=== PATIENT | female | born 1970 | race Hispanic/Latino ===

== ENCOUNTER 2016-10-09 21:19 | Emergency (ER) | payer BC, MEDICARE | END 2016-10-09 21:52 | disposition home or self-care (01) | LOC: NAV ERS 21:19 | DX: R05 Cough (principal); E11.9 Type 2 diabetes mellitus without complications; E66.9 Obesity, unspecified; J45.909 Unspecified asthma, uncomplicated; Z79.899 Other long term (current) drug therapy; M17.0 Bilateral primary osteoarthritis of knee | CPT/HCPCS: 99283 ==

== ENCOUNTER 2016-10-22 20:34 | Emergency (ER) | payer BC, MEDICARE ==
[2016-10-22 21:34] LABS: Blood, Urine Large (Negative); Clarity Clear (Clear); Glucose, Urine (Dipstick) Negative (Negative); Leukocyte Negative (Negative); Nitrite Negative (Negative); Protein, Urine (Dipstick) 30 mg/dL (Neg-Trace); pH, Urine 5.5 (5.0-9.0)
[2016-10-22 21:38] LABS: Bilirubin Negative (Negative); Icto Negative (Negative); Specific Gravity, Urine Greater/Equal 1.030 (1.005-1.030)
[2016-10-22 21:44] LABS: Bacteria/HPF Rare-Few HPF (None Seen); WBC/HPF 0-3 HPF (0-3)
[2016-10-22 22:06] LABS: #Basophils 0.1 thou/uL (0.0-0.2); #Eosinphils 0.1 thou/uL (0.0-0.7); #Lymphocytes 1.8 thou/uL (1.20-3.40); #Monocytes 0.6 thou/uL (0.11-0.59); #Neutrophils 3.9 thou/uL (1.40-6.50); %Eosinophils 1.3 % (0.0-10.0); %Lymphocytes 27.7 % (21.0-51.0); %Monocytes 9.8 % (0.0-10.0); %Neutrophils 60.2 % (42.0-75.0); Hemoglobin 12.7 g/dL (12.0-16.0); Mean Corpuscular HGB CONC 31.4 g/dL (32.0-36.0); Mean Corpuscular Hemoglobin 26.1 pg (27.0-31.0); Mean Corpuscular Volume 83.1 fl (81.0-99.0); Platelet Count 174 thou/uL (130-400); RBC Distribution Width 14.8 % (11.5-14.5); Red Blood Cell (RBC) Count 4.87 mill/uL (4.20-5.40); White Blood Cell (WBC) Count 6.5 thou/uL (4.8-10.8)
[2016-10-22 22:29] LABS: ALT (SGPT) 19 U/L (8-55); AST (SGOT) 19 U/L (5-34); Albumin 3.8 g/dL (3.5-5.0); Alkaline Phosphatase 94 U/L (40-150); Anion Gap 18 mmol/L (10-20); BUN (Urea Nitrogen) 7 mg/dL (7.0-18.7); Bilirubin, Total 0.5 mg/dL (0.2-1.2); Calc. Creatinine Clearance 0 mL/min (70-130); Calcium 9.1 mg/dL (7.8-10.44); Carbon Dioxide 20 mmol/L (22-29); Chloride 104 mmol/L (98-107); Estimated GFR-MDRD 81; Globulin 3.8 g/dL (2.4-3.5); Glucose 117 mg/dL (70-105); Potassium 3.9 mmol/L (3.5-5.1); Protein, Total 7.6 g/dL (6.0-8.3); Sodium 138 mmol/L (136-145)
[2016-10-22] MEDS ORDERED: Ondansetron ODT 4 MG TAB ONE (22:48)
== END 2016-10-23 00:08 | disposition home or self-care (01) ==
LOC: NAV ERS 20:34
DX: N39.0 Urinary tract infection, site not specified (principal); J45.909 Unspecified asthma, uncomplicated; E66.9 Obesity, unspecified; Z79.899 Other long term (current) drug therapy
CPT/HCPCS: 36415; 80053; 81003; 81015; 85025; 87086; 99283; Q0162

== ENCOUNTER 2018-02-19 21:03 | Emergency (ER) | payer MEDICARE ==
--- NOTE | 2018-02-19 21:55 | RAD ---
LEFT TIBIA AND FIBULA TWO VIEWS: HISTORY: Fall. COMPARISON: None. FINDINGS: No fracture or malalignment. Soft tissues are edematous. IMPRESSION: Soft tissue edema. No acute displaced fracture. POS: [facility]
== END 2018-02-19 22:00 | disposition home or self-care (01) ==
LOC: NAV ERS 21:03
DX: S80.12XA Contusion of left lower leg, initial encounter (principal); S90.122A Contusion of left lesser toe(s) without damage to nail, initial encounter; I10 Essential (primary) hypertension; M19.90 Unspecified osteoarthritis, unspecified site; E66.9 Obesity, unspecified; J45.909 Unspecified asthma, uncomplicated; Z79.84 Long term (current) use of oral hypoglycemic drugs; Z79.899 Other long term (current) drug therapy; W13.3XXA Fall through floor, initial encounter

== ENCOUNTER 2018-10-31 20:35 | Emergency (ER) | payer MEDICARE ==
--- NOTE | 2018-10-31 21:17 | RAD ---
LEFT ANKLE 3 VIEWS: Date: 10/31/18 HISTORY: Injury. FINDINGS: Prominent soft tissue edema. No fracture or osseous abnormality. Enthesophyte from the plantar calcan eus is incidentally noted. IMPRESSION: No acute fracture identified. POS: [facility]
[2018-10-31] MEDS ORDERED: traMADol HCl 50 MG TAB PO SCH (21:30)
== END 2018-10-31 21:35 | disposition home or self-care (01) ==
LOC: NAV ERS 20:35
DX: S93.402A Sprain of unspecified ligament of left ankle, initial encounter (principal); M19.90 Unspecified osteoarthritis, unspecified site; E66.9 Obesity, unspecified; J45.909 Unspecified asthma, uncomplicated; Z79.899 Other long term (current) drug therapy; Z79.84 Long term (current) use of oral hypoglycemic drugs; W01.0XXA Fall on same level from slipping, tripping and stumbling without subsequent striking against object, initial encounter

== ENCOUNTER 2021-05-18 18:09 | Outpatient (CLI) | payer MEDICARE, MEDICAID | END 2021-05-18 18:10 | disposition home or self-care (01) | LOC: NAV RAD 18:09 | PROVIDERS: ATTEND Family Medicine | DX: R05.9 Cough, unspecified (principal) | CPT/HCPCS: 71046 ==